=== PATIENT | male | born 1945 | race Caucasian/White ===

== ENCOUNTER 2016-07-21 20:08 | Emergency (ER) | payer BC, OTHER ==
[~2016-07-21] VITALS: Ht 170.2 cm; Wt 85.1 kg
[2016-07-21 20:10] VITALS: TEMP 36.8; Ht 170.2 cm; Wt 85.1 kg
[2016-07-21 21:14] LABS: HEMATOCRIT 42.2 % (42-52); MEAN CELL VOLUME 91.3 fL (80-100); MEAN CORPUSCULAR HEMOGLOBIN 31.8 pg (25-34); MEAN CORPUSCULAR HGB CONC 34.8 g/dl (32-36); MEAN PLATELET VOLUME 11.1 fL (7.4-10.4); PLATELET COUNT 184 K/uL (130-400); RED BLOOD COUNT 4.62 M/uL (4.7-6.1); WHITE BLOOD COUNT 16.94 K/uL (4.8-10.8)
[2016-07-21] MEDS ORDERED: FENO160T PO (21:21)
[2016-07-21] MEDS ORDERED: METF-383 PO (21:21)
[2016-07-21] MEDS ORDERED: ASPI81TA28 PO (21:21)
[2016-07-21] MEDS ORDERED: LISI2.5T5 PO (21:21)
[2016-07-21] MEDS ORDERED: OMEG10007 PO (21:21)
[2016-07-21] MEDS ORDERED: CLR10 PO (21:21)
[2016-07-21] MEDS ORDERED: MULT-506 PO (21:21)
[2016-07-21] MEDS ORDERED: SODIUM CHLORIDE 0.9% 1000ML 1,000 ML IV STA (21:30)
[2016-07-21] MEDS ORDERED: ONDANSETRON INJ 2 MG/ML 2 ML VIAL IV STA (21:30)
[2016-07-21] MEDS ORDERED: MoRPHine SULFATE 4 MG/ML 1 ML CARP\\VIAL IV PRN (21:30)
[2016-07-21] MEDS ORDERED: KETOROLAC TROMETHAMINE 30 MG/ML VIAL IV STA (21:30)
[2016-07-21 21:31] LABS: BUN/CREATININE RATIO 14.3 (10-20); CALCIUM 9.5 mg/dl (8.5-10.1); CREATININE 1.5 mg/dl (0.60-1.40); POTASSIUM 4.1 mmol/L (3.5-5.1)
--- NOTE | 2016-07-21 21:42 | EMERGENCY ROOM VISIT NOTE ---
History Report prepared by [place]: Jenaro Beard Under the Supervision of: Dr. Darin Ho M.D. First contact with patient: 21:23 Chief Complaint: REFERRED BY DOCTOR Stated Complaint: REFERRED BY DR, BACK AND ABDOMINAL PAIN History of Present Illness The patient is a 70 year old male with a history of diabetes who presents to the Emergency Room with complaints of worsening left sided flank pain beginning a 1-2 days prior to arrival. He describes the pain as an ache and currently rates his discomfort as a 7-8/10 in severity. The patient associates lower abdominal pain, abdominal bloating, and decreased appetite with today's symptoms. He states he was evaluated by Dr. Dior at the walk-in clinic, in which, he was referred to the ED for a possible kidney stone. The patient notes there was trace blood in his urine at the clinic. He states the pain may have began a week and a half ago. The patient notes he ate this morning and had a normal bowel movement. He denies vomiting, burning with urination, fever, chills , and a cough. Source of History: patient Onset: 1-2 days [employer] Position: back (left flank) Symptom Intensity: 7-8/10 Quality: ache Timing: worsening Associated Symptoms: + abdominal pain (lower), No chills, No cough, No fevers, No vomiting Note: Associated symptoms: abdominal bloating, decreased appetite, hematuria. Review of Systems See HPI for pertinent positives & negatives. A total of 10 systems reviewed and were otherwise negative. Past Medical & Surgical Medical Problems: (1) Diabetes (2) Kidney stones Surgical Problems: (1) S/P tonsillectomy Family History Cancer Diabetes mellitus FH: heart disease Hypertension Social History Smoking Status: Never Smoker Marital Status: Housing Status: lives with significant other Current/Historical Medications Scheduled Aspirin (Aspirin Ec), 81 MG PO DAILY Fenofibrate (Tricor), 160 MG PO QAM Fish Oil ([place]-3), 1 CAP PO BID Lisinopril (Lisinopril), 2.5 MG PO QPM Loratadine (Claritin), 10 MG PO QAM Metformin Hcl (Glucophage), 850 MG PO BIDM Multivitamin (Multivitamin), 1 TAB PO DAILY Ondasetron Odt (Zofran Odt), 4-8 MG SL Q6H Tamsulosin Hcl (Flomax), 0.4 MG PO DAILY Scheduled PRN Oxycodone Ir (Roxicodone Ir), 1-2 TAB PO Q4H PRN for Pain Allergies Coded Allergies: No Known Allergies (Unverified , 07/21/16) Physical Exam Vital Signs Date Time Temp Pulse Resp B/P Pulse Ox O2 Delivery O2 Flow Rate FiO2 07/21/16 23:20 85 18 147/73 99 07/21/16 21:42 88 18 155/75 95 Room Air 07/21/16 20:10 36.8 84 20 195/92 96 Room Air Physical Exam GENERAL: Patient is in no acute distress. HEENT: No acute trauma, normocephalic atraumatic, mucous membranes dry, no nasal congestion, no scleral icterus. NECK: No stridor, no adenopathy, no meningismus, trachea is midline. LUNGS: Clear to auscultation bilaterally, no wheeze, no rhonchi, breath sounds equal. HEART: Without murmurs gallops or rubs, regular rate and rhythm. ABDOMEN: Mildly diffusely tender, mildly distended. Soft, bowel sounds positive , no hernias, no peritonitis. BACK: Left flank discomfort with percussion. EXTREMITIES: No cyanosis or edema, full range of motion of all the joints without pain or difficulty, no signs for acute trauma. NEUROLOGIC: Oriented x 3, no acute motor or sensory deficits, no focal weakness. SKIN: No rash, no jaundice, no diaphoresis. Medical Decision & Procedures ER Provider Diagnostic Interpretation: Urine Dip shows trace blood, no signs for infection. X ray results and stated below per my interpretation and radiologist interpretation. Other radiology results and stated below per my review and radiologist interpretation: CHEST ONE VIEW PORTABLE HISTORY: Left flank pain COMPARISON: None. FINDINGS: Mild diffuse interstitial thickening. No focal lung consolidations to suggest pneumonia. No evidence for pulmonary edema. The heart is mildly enlarged. No pleural effusions. No pneumothorax. IMPRESSION: 1. Mild diffuse interstitial thickening which is likely chronic. 2. Mild cardiomegaly. Electronically signed by: Noble Bernstein M.D. 07/21/2016 10:46 PM Dictated Date/Time: 07/21/2016 10:45 PM ABDOMEN AND PELVIS CT WITHOUT CONTRAST CT DOSE: 899.87 mGy.cm HISTORY: EVALUATE FLANK PAIN/HEMATURIA TECHNIQUE: Multiaxial CT images of the abdomen and pelvis were performed without the use of intravenous and oral contrast according to the standard department stone protocol. COMPARISON STUDY: None. FINDINGS: Mild interstitial thickening at the lung bases. No pneumoperitoneum. No pneumatosis. No suspicious lytic or blastic osseous lesions. There is a 4 mm obstructing stone within the distal left ureter on image 140. This results in mild left hydroureteronephrosis. There is associated mild left perinephric and periureteral fat stranding. No right-sided hydronephrosis. There is a punctate nonobstructing stone within the lower pole the right kidney. No left renal calculi. There is a 4 mm stone within the gallbladder. Mild hepatic steatosis. The spleen, adrenal glands, and pancreas are unremarkable. No retroperitoneal lymphadenopathy. The bladder is unremarkable. Suboptimal evaluation for bowel pathology due to the lack of intravenous and oral contrast. However, there is no definite bowel wall thickening or obstruction. Extensive colonic diverticulosis. Normal appendix. IMPRESSION: 1. A 4 mm obstructing stone within the distal left ureter resulting in mild left hydronephrosis. 2. Colonic diverticulosis. 3. Right-sided nephrolithiasis. 4. Cholelithiasis. 5. Hepatic steatosis. Electronically signed by: Noble Bernstein M.D. 07/21/2016 10:34 PM Dictated Date/Time: 07/21/2016 10:28 PM Laboratory Results 07/21/16 20:40 07/21/16 20:40 Test 07/21/16 20:40 07/21/16 22:45 Red Blood Count 4.62 M/uL (4.7-6.1) Mean Corpuscular Volume 91.3 fL (80-100) Mean Corpuscular Hemoglobin 31.8 pg (25-34) Mean Corpuscular Hemoglobin Concent 34.8 g/dl (32-36) RDW Standard Deviation 44.0 fL (36.4-46.3) RDW Coefficient of Variation 13.3 % (11.5-14.5) Mean Platelet Volume 11.1 fL (7.4-10.4) Anion Gap 13.0 mmol/L (3-11) Est Creatinine Clear Calc Drug Dose 48.5 ml/min Estimated GFR () 54.3 Estimated GFR (Non- 46.8 BUN/Creatinine Ratio 14.3 (10-20) Calcium Level 9.5 mg/dl (8.5-10.1) Total Bilirubin 0.3 mg/dl (0.2-1) Direct Bilirubin < 0.1 mg/dl (0-0.2) Aspartate Amino Transf (AST/SGOT) 22 U/L (15-37) Alanine Aminotransferase (ALT/SGPT) 24 U/L (12-78) Alkaline Phosphatase 40 U/L (45-117) Total Creatine Kinase 47 U/L (39-308) Total Protein 7.6 gm/dl (6.4-8.2) Albumin 3.8 gm/dl (3.4-5.0) Urine Color YELLOW Urine Appearance CLEAR (CLEAR) Urine pH 6.0 (4.5-7.5) Urine Specific [place] 1.017 (1.000-1.030) Urine Protein NEG (NEG) Urine Glucose (UA) NEG (NEG) Urine Ketones NEG (NEG) Urine Occult Blood TRACE (NEG) Urine Nitrite NEG (NEG) Urine Bilirubin NEG (NEG) Urine Urobilinogen NEG (NEG) Urine Leukocyte Esterase NEG (NEG) Urine WBC (Auto) 1-5 /hpf (0-5) Urine RBC (Auto) 0-4 /hpf (0-4) Urine Hyaline Casts (Auto) 1-5 /lpf (0-5) Urine Epithelial Cells (Auto) 5-10 /lpf (0-5) Urine Bacteria (Auto) NEG (NEG) Laboratory results reviewed by me. Medications Administered Medications (Trade) Dose Ordered Sig/Elliot Route Start Time Stop Time Status Last Admin Dose Admin Sodium Chloride (Nss 1000ml) 1,000 ml @ 999 mls/hr Q1H1M STAT IV 07/21/16 21:30 07/21/16 22:30 DC 07/21/16 21:38 999 MLS/HR Ondansetron HCl (Zofran Inj) 4 mg NOW STAT IV 07/21/16 21:30 07/21/16 21:34 DC 07/21/16 21:37 4 MG Morphine Sulfate (MoRPHine SULFATE INJ) 4 mg Q15M PRN IV 07/21/16 21:30 07/22/16 00:58 DC 07/21/16 21:37 4 MG Ketorolac Tromethamine (Toradol Inj) 30 mg NOW STAT IV 07/21/16 21:30 07/21/16 21:34 DC 07/21/16 21:37 30 MG Tamsulosin HCl (Flomax Cap) 0.4 mg NOW ONCE PO 07/21/16 23:15 07/21/16 23:16 DC 07/21/16 23:16 0.4 MG Oxycodone HCl (Roxicodone Immediate Rel 5MG Home Pack) 1 homepack UD ONCE PO 07/21/16 23:15 07/21/16 23:16 DC 07/21/16 23:16 1 HOMEPACK Ondansetron HCl (ZOFRAN ODT 4MG Home Pack) 1 homepack UD ONCE PO 07/21/16 23:15 07/21/16 23:16 DC 07/21/16 23:16 1 HOMEPACK ED Course 4: The patient was evaluated in room C9. A complete history and physical exam was performed. 0: Ordered Toradol Inj 30 mg IV, Morphine Sulfate 4 mg IV, Zofran Inj 4 mg IV , Sodium Chloride 1,000 ml @ 999 mls/hr IV. It is noted the Urine Dip shows trace blood, no signs for infection. 3: Reevaluated the patient. Discussed results and discharge instructions: He verbalized understanding and agreement. The patient is ready for discharge. 2315: Ordered Ondansetron HCl 1 homepack PO, Oxycodone HCl 1 homepack PO, Flomax Cap 0.4 mg PO. Medical Decision The differential diagnoses include but are not limited to: dehydration, renal failure, electrolyte imbalance, UTI, renal colic, pneumonia, anemia. There is no anemia. The patient does have a moderate leukocytosis which could be consistent with infection or possibly just his pain. No significant electrolyte abnormality, kidney failure or hepatitis. Chest x-ray does not show pneumonia or free air. Abdominal and pelvis CT shows a 4 mm left ureteral stone with some hydronephrosis. Urinalysis does not show evidence for infection. The patient received IV saline, IV Zofran, IV morphine and IV Toradol. He is feeling improved. The patient received oral Flomax. He is comfortable and I do think can be discharged home. He will strain his urine, he will be discharged with oxycodone , Zofran and Flomax. He can return if worsening or not improving. He will follow with his doctor's office. [place] Drug Monitoring Program Search Results: patient reviewed within database, no issues identified Impression Primary Impression: Renal colic Additional Impression: Hematuria Scribe Attestation The scribe's documentation has been prepared under my direction and personally reviewed by me in its entirety. I confirm that the note above accurately reflects all work, treatment, procedures, and medical decision making performed by me. Departure Information Dispostion Home / Self-Care Prescriptions Tamsulosin Hcl (FLOMAX) 0.4 Mg Cap 0.4 MG PO DAILY, #10 CAP Prov: Darin Ho M.D. 07/21/16 Ondasetron Odt (ZOFRAN ODT) 4 Mg Tab 4-8 MG SL Q6H for Nausea, #12 TAB Prov: Darin Ho M.D. 07/21/16 Oxycodone Ir (Roxicodone Ir) 5 Mg Tab 1-2 TAB PO Q4H Y for Pain, #15 TAB Prov: Darin Ho M.D. 07/21/16 Referrals Panfil[facility] LimonD.ORobyn (PCP) Forms HOME CARE DOCUMENTATION FORM, IMPORTANT VISIT INFORMATION, WORK / SCHOOL INSTRUCTIONS Patient Instructions A Signature Page, My [facility] Additional Instructions fluids oxy ir 1-2 tab every 4 hours for severe pain strain all the urine zofran 1-2 tab every 6 hours for nausea follow with loree arias this week flomax daily to help the stone pass return for fever, vomiting or uncontrolled pain Problem Qualifiers
[2016-07-21 22:25] LABS: ALKALINE PHOSPHATASE 40 U/L (45-117); ALT/SGPT 24 U/L (12-78); AST/SGOT 22 U/L (15-37)
--- NOTE | 2016-07-21 22:36 | DIAGNOSTIC IMAGING REPORT ---
ABDOMEN AND PELVIS CT WITHOUT CONTRAST CT DOSE: 899.87 mGy.cm HISTORY: EVALUATE FLANK PAIN/HEMATURIA TECHNIQUE: Multiaxial CT images of the abdomen and pelvis were performed without the use of intravenous and oral contrast according to the standard department stone protocol. COMPARISON STUDY: None. FINDINGS: Mild interstitial thickening at the lung bases. No pneumoperitoneum. No pneumatosis. No suspicious lytic or blastic osseous lesions. There is a 4 mm obstructing stone within the distal left ureter on image 140. This results in mild left hydroureteronephrosis. There is associated mild left perinephric and periureteral fat stranding. No right-sided hydronephrosis. There is a punctate nonobstructing stone within the lower pole the right kidney. No left renal calculi. There is a 4 mm stone within the gallbladder. Mild hepatic steatosis. The spleen, adrenal glands, and pancreas are unremarkable. No retroperitoneal lymphadenopathy. The bladder is unremarkable. Suboptimal evaluation for bowel pathology due to the lack of intravenous and oral contrast. However, there is no definite bowel wall thickening or obstruction. Extensive colonic diverticulosis. Normal appendix. IMPRESSION: 1. A 4 mm obstructing stone within the distal left ureter resulting in mild left hydronephrosis. 2. Colonic diverticulosis. 3. Right-sided nephrolithiasis. 4. Cholelithiasis. 5. Hepatic steatosis. Electronically signed by: Noble Bernstein M.D. 07/21/2016 10:34 PM Dictated Date/Time: 07/21/2016 10:28 PM
--- NOTE | 2016-07-21 22:48 | DIAGNOSTIC IMAGING REPORT ---
CHEST ONE VIEW PORTABLE HISTORY: Left flank pain COMPARISON: None. FINDINGS: Mild diffuse interstitial thickening. No focal lung consolidations to suggest pneumonia. No evidence for pulmonary edema. The heart is mildly enlarged. No pleural effusions. No pneumothorax. IMPRESSION: 1. Mild diffuse interstitial thickening which is likely chronic. 2. Mild cardiomegaly. Electronically signed by: Noble Bernstein M.D. 07/21/2016 10:46 PM Dictated Date/Time: 07/21/2016 10:45 PM
[2016-07-21 23:03] LABS: URINE APPEARANCE CLEAR (CLEAR); URINE BILIRUBIN NEG (NEG); URINE COLOR YELLOW; URINE NITRITE NEG (NEG); URINE SPECIFIC GRAVITY 1.017 (1.000-1.030); UROBILINOGEN NEG (NEG); ZZUR CULT IF INDIC CLEAN CATCH NO
[2016-07-21 23:05] LABS: MANUAL MICROSCOPIC REQUIRED? NO; REVIEW REQ? NO
[2016-07-21] MEDS ORDERED: TAMS0.4C38 PO (23:10)
[2016-07-21] MEDS ORDERED: OXYC1TAB3 PO (23:10)
[2016-07-21] MEDS ORDERED: ONDA4TAB10 SL (23:10)
[2016-07-21] MEDS ORDERED: TAMSULOSIN HCL 0.4 MG CAP PO ONE (23:15)
[2016-07-21] MEDS ORDERED: OXYCODONE IR HOME PACK PO ONE (23:15)
[2016-07-21] MEDS ORDERED: ONDANSETRON HOME PACK 4MG OD TAB PO ONE (23:15)
[2016-07-21 23:20] VITALS: BP 147/73; PULSE 85; O2SAT 99
== END 2016-07-21 23:22 | disposition home or self-care (01) ==
LOC: C.EDB 20:10 → C.EDC 23:22
DX: N23 Unspecified renal colic (principal); E11.9 Type 2 diabetes mellitus without complications; Z87.442 Personal history of urinary calculi; Z83.3 Family history of diabetes mellitus; Z82.49 Family history of ischemic heart disease and other diseases of the circulatory system; Z79.82 Long term (current) use of aspirin; Z79.899 Other long term (current) drug therapy

== ENCOUNTER → 2016-08-12 | Outpatient (CLI) | payer BC ==
[~2016-08-12] MED LIST: ASPI81TA28 PO; CLR10 PO; FENO160T PO; LISI2.5T5 PO; METF-383 PO; MULT-506 PO; OMEG10007 PO; ONDA4TAB10 SL; OXYC1TAB3 PO
--- NOTE | 2016-08-12 13:55 | DIAGNOSTIC IMAGING REPORT ---
[facility]UB CLINICAL HISTORY: Prostate carcinoma. History of right renal calculi. COMPARISON STUDY: CT scan dated 07/21/2016 FINDINGS: There is a lumbar levoscoliosis. There is no pathologic bowel dilatation. The renal shadows are partially obscured by overlying bowel gas and fecal material. No renal calculi are visualized. The previously identified distal left ureteral calculus is not visualized on conventional radiographic imaging. IMPRESSION: No pathologic bowel dilatation. No urinary tract calculi are visualized on conventional radiographic imaging. Electronically signed by: Elver Morales M.D. 08/12/2016 1:53 PM Dictated Date/Time: 08/12/2016 1:51 PM
== END | disposition home or self-care (01) ==
LOC: C.LAB 13:16
PROVIDERS: ATTEND Urology
DX: Z12.5 Encounter for screening for malignant neoplasm of prostate (principal)

== ENCOUNTER → 2016-08-19 | Outpatient (CLI) | payer BC | END | disposition home or self-care (01) | LOC: C.LABSPEC 18:25 | PROVIDERS: ATTEND Urology | DX: N20.0 Calculus of kidney (principal) ==